=== PATIENT | male | born 2000 | race African-American/Black ===

== ENCOUNTER 2023-02-07 06:31 | Emergency (ER) | payer MEDICAID, OTHER ==
[~2023-02-07] VITALS: Ht 162.6 cm; Wt 63.0 kg
[2023-02-07 06:38] VITALS: TEMP 98.5; O2SAT 98
[2023-02-07] MEDS ORDERED: BACITRACIN ZINC OINT UDPKT TOP ONE (07:30)
[2023-02-07] MEDS ORDERED: LIDOCAINE HCL/PF 1% 10 MG/ML 5ML VIAL INFIL ONE (07:30)
[2023-02-07] MEDS ORDERED: TETANUS, DIPHTHERIA, PERTUSSIS VAC/PF 0.5ML (>10YR OLD) IM ONE (07:30)
[2023-02-07 10:40] VITALS: BP 139/76; PULSE 98; RESP 19
== END 2023-02-07 11:08 ==
LOC: ER 06:41
DX: S01.91XA Laceration without foreign body of unspecified part of head, initial encounter (principal); X58.XXXA Exposure to other specified factors, initial encounter; Y93.89 Activity, other specified; Y92.89 Other specified places as the place of occurrence of the external cause; Y99.8 Other external cause status
CPT/HCPCS: 70450; 90715; 12002; 90471; 99285; J3490; Z7610 ×4